=== PATIENT | male | born 1995 | race African-American/Black ===

== ENCOUNTER 2020-02-09 22:49 | Emergency (ER) | payer SELFPAY ==
[~2020-02-09] VITALS: Ht 180.3 cm; Wt 77.1 kg
[2020-02-09 23:28] VITALS: Ht 180.3 cm; Wt 77.1 kg
[2020-02-10 02:53] LABS: AMPHETAMINE QUAL UR NONE DETECTED (See below)
[2020-02-10 06:35] VITALS: BP 101/59
== END 2020-02-10 06:35 | disposition home or self-care (01) ==
LOC: ED 22:49
PROVIDERS: Emergency Medicine
DX: R46.89 Other symptoms and signs involving appearance and behavior (principal); R40.4 Transient alteration of awareness
CPT/HCPCS: 82962; G0480